=== PATIENT | female | born 1955 | race Caucasian/White ===

== ENCOUNTER 2020-12-19 08:51 | Outpatient (CLI) | payer MEDICARE, OTHER, SELFPAY ==
[2020-12-19 14:21] LABS: EDCOVIDSCREEN Negative (Negative)
== END 2020-12-19 08:52 | disposition home or self-care (01) ==
PROVIDERS: PCP Family Medicine; Visit Provider Urology
DX: Z01.812 Encounter for preprocedural laboratory examination (principal); Z20.822 Contact with and (suspected) exposure to COVID-19
CPT/HCPCS: 87426; C9803

== ENCOUNTER 2020-12-19 13:39 | Day surgery (SDC) | payer MEDICARE, OTHER, SELFPAY ==
--- NOTE | ~2020-12-19 | XR_ITS ---
EXAMINATION: XR retrograde pyelo w/stent RT EXAM DATE: 12/19/2020 15:06 INDICATION: Right-sided retrograde pyelogram, stent placement. Cystogram. TECHNIQUE: Fluoroscopy used during XR retrograde pyelo w/stent RT performed by Dr. Adam Lopez MD, urologist. The radiologist Irvin Soriano M.D. dictating this report of the image(s) available wa s not present for the procedure. Total fluoroscopic time of 38 seconds. The DAP for this procedure was 1029 radcm2. A total of 62 images sent to PACS from the exam. Cine run(s) available for review. FINDINGS: Left ureter was cannulated, injected. A double-J ureteral stent was placed. Correlate wit h procedure note. IMPRESSION: Fluoroscopy used during left retrograde pyelogram, stent placement. Reviewed, dictated and finalized at location A.
--- NOTE | ~2020-12-19 | XR_ITS ---
EXAMINATION: XR abdomen/kub 1V INDICATION: Right ureteral stone position TECHNIQUE: Supine views of the abdomen were obtained on 2 radiographs. COMPARISON: None FINDINGS: A right internal ureteral stent is in expected position. There is a questionable 4 mm stone of the right kidney lower pole. No definite stones are identified along the course of the internal u reteral stent. The bowel gas pattern is normal. There are phleboliths of the left pelvis. The visuali zed lung bases are clear. IMPRESSION: 1. Right internal ureteral stent in expected position with possible stone of the right kidney lower p ole. Reviewed, dictated and finalized at location B. IMPRESSION: 1. Right internal ureteral stent in expected position with possible stone of th e right kidney lower pole.
[2020-12-19 09:07] VITALS: BMI 42.9
[2020-12-19] MEDS: LACTATED RINGERS 1,000 ML 30 ML IV CONT (14:10)
--- NOTE | 2020-12-19 14:17 | WPDANESEPPF ---
Anes - Initial Pre Proc Eval Procedure: Operation Date: 12/19/20 15:30 Proposed Procedures p Cystoscopy, Right Stent Placement - Adam Lopez MD Date/Time: 12/19/20 14:17 Surgeon: Adam Lopez MD Pre Op Diagnosis: right renal stone Patient Data Age: 65 Gender: F Height: 1.63 m Weight: 113.4 kg Allergies Allergy/AdvReac Type Severity Reaction Status Date / Time No Known Allergies Allergy Verified 12/19/20 08:56 Home Medications Medication Instructions Recorded Confirmed Type No Home Medications 12/19/20 12/19/20 History Patient hx anesthesia problems: none Family hx anesthesia problems: none PMFSH Social History Social History Smoking status: Never smoker Alcohol intake: current Drinks per week: 3 Living arrangements: with family Spiritual care concerns: No Anes - Eval Final PreProcedure Day of Procedure 12/19/20 14:17 Patient weight: morbidly obese Heart: regular rate and rhythm Lungs: clear to auscultation and normal air movement Airway: Mallampati scale class II Neurological: alert and oriented Last oral intake: >/= 8 hours ASA classification: III Emergent: no Anesthetic plan: proceed Anesthesia type and monitoring: general GIVS and standard monitoring Informed Consent: The patient's anesthetic plan and its attendant risks and benefits were discussed with the patient/family/POA. Questions were solicited and answers provided to the satisfaction of the patient/family/POA.
--- NOTE | 2020-12-19 14:20 | P.HP_ITS ---
History of Present Illness History of Present Illness Consent: Risks, benefits, and alternatives have been discussed and questions answered. Patient agrees to proceed with procedure. Chief complaint: right renal stone Narrative: Diane Theodore is a 65 year old female Whose had 1 prior episode of urolithiasis in the remote past. She presented to the emergency department at [facility] last night with right flank pain. Imaging revealed a 6 mm proximal ureteral stone. She appeared to have a urinary tract infection but was afebrile and without leukocytosis. She was given a dose of IV antibiotics and discharged. She presents now for stent placement. Subsequently, approximately 2 weeks from now, we will plan right ESWL. Review of Systems Cardiovascular: Cardiovascular: Denies chest pain, Denies lightheadedness, Denies palpitations and Denies dyspnea Respiratory: Respiratory: Denies dyspnea Gastrointestinal: Gastrointestinal: Denies diarrhea, Denies nausea and Denies vomiting Genitourinary: Genitourinary: Denies hematuria and Denies dysuria Endocrine: Endocrine: Denies palpitations [facility] Social History Social History Smoking status: Never smoker Alcohol intake: current Drinks per week: 3 Living arrangements: with family Spiritual care concerns: No Meds Home Medications and Allergies Home Medications Medication Instructions Recorded Confirmed Type No Home Medications 12/19/20 12/19/20 History Allergies Allergy/AdvReac Type Severity Reaction Status Date / Time No Known Allergies Allergy Verified 12/19/20 08:56 Exam Const: General: no acute distress Resp: Effort & Inspection: normal respiratory effort GI: Inspection: non-distended GI Palp: No abdominal tenderness and No Guarding due to palpation present (GI) Auscultation: normal bowel sounds Assessment and Plan Assessment and plan (1) Right ureteral stone: Code(s): N20.1 - Calculus of ureter Status: Acute Assessment and Plan: * Cystoscopy with right ureteral stent placement. * ESWL in the future, once adequate treatment for her probable urinary tract infection has been undertaken
--- NOTE | 2020-12-19 14:22 | WPDHPUPDATE1 ---
History and Physical Update Update Date/Time: 12/19/20 14:22 History and Physical has been reviewed, including an updated exam of the patient. There are NO changes in the patient's condition. Risks, benefits, and alternatives have been discussed and questions answered. Patient agrees to proceed with procedure.
[2020-12-19] MEDS: ceFAZolin 2 GM/D5W 50 ML 2 GM/50 ML BAG IVPB (14:36)
[2020-12-19 14:38] VITALS: BP 171/85; PULSE 68; TEMP 37.2; O2SAT 97
[2020-12-19] MEDS: LIDOCAINE HCL 2% GEL UROJET 10 ML PKG MUCOUS MEM (14:57)
[2020-12-19 15:05] VITALS: BP 136/62; PULSE 64; RESP 14; O2SAT 95
--- NOTE | 2020-12-19 15:06 | P.OP_ITS ---
Procedure Note - Detailed Date of Procedure 12/19/20 Pre-op Diagnosis Right ureteral stone Post-op Diagnosis same Procedure Performed Cystoscopy, right retrograde pyelography, right ureteroscopy and right ureteral stent placement Surgeon Adam Lopez MD Description of Procedure this is brought to the operative suite where she has prepped draped in routine sterile fashion while in dorsal lithotomy position. Cystoscopy is undertaken with a 19 F rigid cystoscope. Bladder neck and urethra endoscopically normal. Bladder mucosa is normal. There is no intravesical foreign body or neoplasm. She has a single orthotopic ureteral bilaterally. 0.035 in glidewire was advanced in the right renal pelvis. The distal ureter was dilated with an 8 F 10 F dilator. Retrograde pyelography is undertaken with an angiographic catheter. It appears as if possibly the stone is dropped into a distal ureter, hence my decision to do distal ureteroscopy with the semi-rigid scope. Ureteroscopy was undertaken to the iliac vessels and there are no identifiable stones. This point I removed the ureteral scope and placed a 4.8 F variable le ngth stent with the proximal coil in renal pelvis and distal coil in the bladder. Scopes wires removed. Make plans for ESWL in approximately 1-2 weeks. Estimated Blood Loss 0 Drains Yes Pathology none sent Complications No immediate complications Condition stable Disposition PACU
[2020-12-19 15:35] VITALS: BP 143/72; PULSE 58; RESP 14
[2020-12-19 16:05] VITALS: BP 169/54; PULSE 60; RESP 14
== END 2020-12-19 16:15 | disposition home or self-care (01) ==
PROVIDERS: PCP Family Medicine; Visit Provider Urology
PROC: (CPT 52352; principal; 2020-12-19 15:30)
DX: N20.1 Calculus of ureter (principal); E66.01 Morbid (severe) obesity due to excess calories; Z68.41 Body mass index [BMI] 40.0-44.9, adult
CPT/HCPCS: 52332; 74018; 74420; 87426; A9270; C1769; C1887; C2617; C9803; J0690; J1100; J2250; J2405; J2704; J3010; J7120; Q9966

== ENCOUNTER → 2020-12-24 00:33 | Outpatient (CLI) | payer MEDICARE, OTHER, SELFPAY ==
[2020-12-24 20:36] LABS: SARS-CoV-2 RNA PCR Negative
== END ==
PROVIDERS: PCP Family Medicine; Visit Provider Urology
DX: Z01.812 Encounter for preprocedural laboratory examination (principal); Z20.822 Contact with and (suspected) exposure to COVID-19
CPT/HCPCS: C9803; U0003; U0005

== ENCOUNTER 2020-12-27 02:59 | Day surgery (SDC) | payer MEDICARE, OTHER, SELFPAY ==
[2020-12-25 08:36] VITALS: BMI 42.9
[2020-12-27] VITALS (10 sets, daily range): BP systolic 135–217; BP diastolic 56–85; PULSE 51–71; RESP 12–18; TEMP 36–36.4; O2SAT 95–100
--- NOTE | ~2020-12-27 | XR_ITS ---
EXAMINATION: XR abdomen/kub 1V DATE: 12/27/2020 10:29 INDICATION: Extracorporeal shock wave lithotripsy TECHNIQUE: A supine view of the abdomen on 2 radiographs was obtained. COMPARISON: 12/19/2020 FINDINGS: Right internal renal stent with loops formed in the bladder and proximal loop projecting over the upp er pole calyx of the right kidney. 4 mm stone projecting over the mid right kidney. 6 x 4 mm in width stone projecting over the left transverse process of L5 suspicious for left ureteral stone. A couple unchanged phleboliths in the pelvis. Normal bowel gas pattern. IMPRESSION: 1. 4 mm stone in the mid right kidney with unchanged right internal ureteral stent in expected positi on. 2. 6 x 4 mm likely stone in the mid left ureter. Correlate for left-sided ureteral colic. Reviewed, dictated and finalized at location A. IMPRESSION: 1. 4 mm stone in the mid right kidney with unchanged right internal ureteral st ent in expected position. 2. 6 x 4 mm likely stone in the mid left ureter. Correlate for left-sided urete ral colic.
--- NOTE | 2020-12-27 06:37 | WPDHPUPDATE1 ---
History and Physical Update Update Date/Time: 12/27/20 06:37 History and Physical has been reviewed, including an updated exam of the patient. There are NO changes in the patient's condition. Risks, benefits, and alternatives have been discussed and questions answered. Patient agrees to proceed with procedure.
--- NOTE | 2020-12-27 11:03 | WPDANESEPPF ---
Anes - Initial Pre Proc Eval Procedure: Operation Date: 12/27/20 12:30 Proposed Procedures p Right Ureteral Extracorporeal Shock Wave Lithotripsy - Adam Lopez MD Date/Time: 12/27/20 11:03 Surgeon: Adam Lopez MD Pre Op Diagnosis: right ureteral stone Patient Data Age: 65 Gender: F Height: 1.63 m Weight: 113.5 kg Allergies Allergy/AdvReac Type Severity Reaction Status Date / Time No Known Allergies Allergy Verified 12/25/20 08:45 Home Medications Medication Instructions Recorded Confirmed Type hydrocodone-acetaminophen 1 - 2 tablet PO Q6H PRN #20 tablet 12/19/20 12/25/20 Rx sulfamethoxazole-trimethoprim 1 tablet PO Q12H #20 tablet 12/19/20 12/25/20 Rx amlodipine 10 mg PO DAILY 12/25/20 12/25/20 History Patient hx anesthesia problems: none Family hx anesthesia problems: none PMFSH Past Medical History Medical History (Updated 12/27/20 @ 11:03 by Maximo Martinez MD) HTN (hypertension) Morbid obesity Surgical History Surgical History (Updated 12/27/20 @ 11:04 by Maximo Martinez MD) Hx of cystoscopy Social History Social History Smoking status: Never smoker Second hand tobacco smoke exposure: No Alcohol intake: current Drinks per week: 3 Substance use: never Substance use type: does not use Living arrangements: with family Spiritual care concerns: No Anes - Eval Final PreProcedure Day of Procedure 12/27/20 11:03 Patient weight: morbidly obese Heart: regular rate and rhythm Lungs: clear to auscultation Airway: Mallampati scale class II Neurological: alert and oriented Last oral intake: >/= 8 hours ASA classification: III Emergent: no Anesthetic plan: proceed Anesthesia type and monitoring: general LMA and standard monitoring Informed Consent: The patient's anesthetic plan and its attendant risks and benefits were discussed with the patient/family/POA. Questions were solicited and answers provided to the satisfaction of the patient/family/POA.
[2020-12-27] MEDS: LACTATED RINGERS 1,000 ML 30 ML IV CONT (11:30)
[2020-12-27 11:36] LABS: Prothrombin Time 12.9 Seconds (11.1-14.7)
[2020-12-27 11:37] LABS: Partial Thromboplastin Time 28.6 SECONDS (22.3-36.8)
[2020-12-27] MEDS: ceFAZolin 2 GM/D5W 50 ML 2 GM/50 ML BAG IVPB (12:31)
--- NOTE | 2020-12-27 13:00 | P.OP_ITS ---
Procedure Note - Detailed Date of Procedure 12/27/20 Pre-op Diagnosis Right renal stone Post-op Diagnosis same Procedure Performed Cystoscopy, right ureteral stent removal Right ESWL Surgeon Adam Lopez MD Anesthesia general Description of Procedure The patient was brought to the operative suite where she was placed in the frog- legged position on the Dornier lithotripter table. Flexible cystoscopy was undertaken with a 16F flexible cystoscopy. Her urethra and bladder neck were endoscopically normal. The bladder mucosa was normal and there was a single, orthotopic ureteral orifice bilaterally. The tip of the indwelling stent is grasped and it is removed with ease. The patient was then repositioned in the supine position and the focal point of the lithotriptor was placed at a 6-7mm left mid-ureteral calculus. A total of 2500 shocks were delivered at a power setting of 7. There appeared to be good fragmentation of the stone. The patient tolerated the procedure well and was taken to the recovery room in good condition. Drains No Packing No Pathology none sent Complications No immediate complications Condition stable Disposition PACU
[2020-12-27] MEDS: hydrALAZINE HCL 20 MG/ML VIAL 10 MG IV PUSH (14:45)
[2020-12-27] MEDS: ONDANSETRON INJ 4 MG/2 ML VIAL IV PUSH (14:55)
[2020-12-27] MEDS: oxyCODONE HCL (*CRX) 5 MG TAB IR PO (15:07)
--- NOTE | 2020-12-27 16:46 | SUR.PHASEII ---
Dr. Martinez made aware of BP after 10mg of hydralazine and was okay discharging patient home. Patient to follow-up with primary doctor.
== END 2020-12-27 15:41 | disposition home or self-care (01) ==
PROVIDERS: PCP Family Medicine; Visit Provider Urology
PROC: (CPT 50590; principal; 2020-12-27 12:30)
DX: N20.0 Calculus of kidney (principal); I10 Essential (primary) hypertension; E66.01 Morbid (severe) obesity due to excess calories; Z68.41 Body mass index [BMI] 40.0-44.9, adult
CPT/HCPCS: 50590; 36415; 74018; 85610; 85730; A9270; J0360; J0690; J1100; J2250; J2405; J2704; J3010; J7120